=== PATIENT | female | born 1940 | race Native Hawaiian/Other Pacific Islander ===

== ENCOUNTER 2021-03-05 09:28 | Outpatient (CLI) | payer OTHER ==
[~2021-03-05] VITALS: Ht 147.3 cm; Wt 74.2 kg
== END 2021-03-05 20:53 | disposition home or self-care (01) ==
LOC: INF 09:28
PROVIDERS: ATTEND Internal Medicine
DX: U07.1 COVID-19 (principal); Z23 Encounter for immunization
CPT/HCPCS: 96365; Q0247